=== PATIENT | male | born 1940 | race Caucasian/White ===

== ENCOUNTER 2020-08-02 05:32 | Day surgery (SDC) | payer MEDICARE ==
[~2020-08-02] VITALS: Ht 172.7 cm; Wt 71.2 kg
[2020-08-02] MEDS ORDERED: BUPIVACAINE/PF 0.5% ONE (06:29)
[2020-08-02] MEDS ORDERED: LIDOCAINE/PF 1%, 30ML ONE (06:29)
[2020-08-02] MEDS ORDERED: CHLORHEXIDINE 15 ML UDC PO ONE (06:30)
[2020-08-02] MEDS ORDERED: LACTATED RINGERS 1,000 ML IV SCH (06:30)
[2020-08-02 06:32] VITALS: BP 107/71
[2020-08-02] MEDS ORDERED: HYDROCHLOROQUIN PO (06:46)
[2020-08-02] MEDS ORDERED: ROPI0.5T4 PO (06:46)
[2020-08-02] MEDS ORDERED: PRED2.5T PO (06:46)
[2020-08-02] MEDS ORDERED: ASPI81TA59 PO (06:46)
[2020-08-02] MEDS ORDERED: SACU1TAB PO (06:46)
[2020-08-02] MEDS ORDERED: RUXO20TA PO (06:46)
[2020-08-02] MEDS ORDERED: TORS20TA2 PO (06:46)
[2020-08-02] MEDS ORDERED: METALAZONE PO (06:46)
[2020-08-02] MEDS ORDERED: SPIR25TA5 PO (06:46)
[2020-08-02] MEDS ORDERED: GABA600T7 PO (06:46)
[2020-08-02] MEDS ORDERED: ALLO100T30 PO (06:46)
[2020-08-02] MEDS ORDERED: CLOP75TA52 PO (06:48)
[2020-08-02] MEDS ORDERED: LINE600T15 PO (06:48)
[2020-08-02 06:49] LABS: BASOPHILS % (AUTO) 1 % (0-1); EOSINOPHILS % (AUTO) 3 % (1-7); LYMPHOCYTES % (AUTO) 5 % (22-44); MEAN CORPUSCULAR HEMOGLOBIN 34.3 pg (27.5-34.5); MEAN CORPUSCULAR HGB CONC 32.8 g/dL (33.2-36.2); MONOCYTES % (AUTO) 7 % (2-9); NEUTROPHILS % (AUTO) 84 % (42-75); PLATELET COUNT 743 x10^3/uL (130-400); RED BLOOD COUNT 3.48 x10^6/uL (4.38-5.82); RED CELL DISTRIBUTION WIDTH 18.3 % (9.4-14.8)
[2020-08-02] MEDS ORDERED: FENTANYL PF 250 MCG/5ML ONE (06:54)
[2020-08-02] MEDS ORDERED: ATROPINE SYRINGE 0.1 MG/ML, 10ML ONE (06:57)
[2020-08-02 06:58] LABS: ALANINE AMINOTRANSFERASE 29 U/L (12-78); ALBUMIN 3.7 g/dL (3.4-5.0); ANION GAP 11 mmol/L (5-15); CALCIUM 9.4 mg/dL (8.5-10.1); CHLORIDE 103 mmol/L (98-107)
[2020-08-02 07:01] LABS: ALKALINE PHOSPHATASE 66 U/L (45-117); TOTAL PROTEIN 7.6 g/dL (6.4-8.2)
[2020-08-02] MEDS ORDERED: PROPOFOL 10 MG/ML, 20ML ONE (07:08)
[2020-08-02] MEDS ORDERED: ONDANSETRON 2MG/ML, 2ML ONE (07:08)
[2020-08-02] MEDS ORDERED: BACITRACIN 50,000 UNIT ONE (07:14)
[2020-08-02] MEDS ORDERED: VANCOMYCIN 1,000 MG ONE (07:14)
[2020-08-02] MEDS ORDERED: EPHEDRINE 50 MG/ML, 1ML IVPush PRN (07:30)
[2020-08-02] MEDS ORDERED: OXYcodone 5 MG/5 ML ORAL.SOL UDC PO PRN (07:30)
[2020-08-02] MEDS ORDERED: ACETAMINOPHEN 325 MG TABLET PO PRN (07:30)
[2020-08-02] MEDS ORDERED: PROMETHAZINE 25 MG/ML, 1ML IVPush PRN (07:30)
[2020-08-02] MEDS ORDERED: METHOCARBAMOL 1,000 MG in DEXTROSE 5% 100 ML IV PRN (07:30)
[2020-08-02] MEDS ORDERED: LABETALOL 5MG/ML, 20ML IV PRN (07:30)
[2020-08-02] MEDS ORDERED: FENTANYL PF 100 MCG/2ML IV PRN (07:30)
[2020-08-02] MEDS ORDERED: ONDANSETRON 2MG/ML, 2ML IVPush PRN (07:30)
[2020-08-02] MEDS ORDERED: LORazepam 2 MG/ML, 1ML IVPush PRN (07:30)
[2020-08-02] MEDS ORDERED: HYDROmorphone 1 MG/ML, 1ML INJ IVPush PRN (07:30)
[2020-08-02] MEDS ORDERED: hydrALAzine 20 MG/ML, 1ML IV PRN (07:30)
== END 2020-08-02 09:15 | disposition home or self-care (01) ==
LOC: OUT 05:32
PROVIDERS: ATTEND Podiatrist
DX: M86.172 Other acute osteomyelitis, left ankle and foot (principal); B95.62 Methicillin resistant Staphylococcus aureus infection as the cause of diseases classified elsewhere; I10 Essential (primary) hypertension; Z20.822 Contact with and (suspected) exposure to COVID-19; Z79.82 Long term (current) use of aspirin; Z79.899 Other long term (current) drug therapy; Z88.8 Allergy status to other drugs, medicaments and biological substances
CPT/HCPCS: 28820; 36415; 73630; 80053; 85025; 87070; 87075; 87205; 87635; 88305; 88311; 93005; J0461; J2405; J2704; J3010; J3370; J7120